=== PATIENT | female | born 1980 | race Caucasian/White ===

== ENCOUNTER 2019-01-07 12:00 | Emergency (ER) | payer OTHER ==
[2019-01-07 12:16] VITALS: BP 104/79
[2019-01-07] MEDS ORDERED: Ketorolac INJ* 30 MG/ML 1 ML VIAL IM ONE (12:25)
--- NOTE | 2019-01-07 12:30 | UC ---
Back Pain HPI - HPI Summary HPI Summary: 38-year-old female complaining of low back pain over the past few days. She does have a history of kidney stones and she states it feels like she may have a kidney stone again. She denies any fever or chills. She's had a hysterectomy in the past. No recent injury. - History of Current Complaint Chief Complaint: UCGU Stated Complaint: BACK PAIN, AND FREQUENT URINATION Time Seen by Provider: 01/07/19 12:11 Hx Obtained From: Patient ?: No Onset/Duration: Gradual Onset, Lasting Days Timing: Constant Severity Initially: Mild Severity Currently: Moderate Pain Intensity: 6 Back Pain: Is Diffuse Character: Dull, Aching Aggravating Factor(s): Nothing Alleviating Factor(s): Nothing Associated Signs And Symptoms: Negative: Weakness, Numbness, Tingling, Abdominal Pain, Flank Pain, Bladder Incontinence, Bowel Incontinence, Pain with Weight Bearing - Allergies/Home Medications Allergies/Adverse Reactions: Allergies Allergy/AdvReac Type Severity Reaction Status Date / Time codeine Allergy Itching Verified 01/07/19 12:16 Home Medications: Home Medications Conjugated Estrogens TAB* [Premarin TAB*] 0.3 mg PO DAILY 01/07/19 [History Confirmed 01/07/19] PMH/Surg Hx/FS Hx/Imm Hx Previously Healthy: Yes GI/ History: Kidney Stones - Surgical History Surgical History: Yes Surgery Procedure, Year, and Place: hysterectomy. breast augmentation - Family History Known Family History: Positive: Non-Contributory - Social History Occupation: Employed Full-time Alcohol Use: None Substance Use Type: None Smoking Status (MU): Light Every Day Tobacco Smoker Review of Systems All Other Systems Reviewed And Are Negative: Yes Musculoskeletal: Positive: Other: - Pain in low back which feels like when she had a previous kidney stone in the past which she had successfully passed. Is Patient Immunocompromised?: No Physical Exam Triage Information Reviewed: Yes Appearance: Well-Appearing, Well-Nourished, Pain Distress - Patient is mildly uncomfortable. Vital Signs: Initial Vital Signs Temp 99.3 F 01/07/19 12:10 Pulse 87 01/07/19 12:10 Resp 16 01/07/19 12:10 BP 104/79 01/07/19 12:10 Pulse Ox 98 01/07/19 12:10 Vital Signs Reviewed: Yes Eyes: Positive: Conjunctiva Clear ENT: Positive: Hearing grossly normal, Pharynx normal, TMs normal, Uvula midline Neck: Positive: Supple, Nontender, No Lymphadenopathy Respiratory: Positive: Lungs clear, Normal breath sounds, No respiratory distress, No accessory muscle use Cardiovascular: Positive: RRR, No Murmur, Pulses Normal, Brisk Capillary Refill Abdomen Description: Positive: Nontender, No Organomegaly, Soft. Negative: CVA Tenderness (R), CVA Tenderness (L), Distended, Guarding, Hepatomegaly, McBurney' s Point Tenderness, Splenomegaly Bowel Sounds: Positive: Present Musculoskeletal: Positive: Strength Intact, ROM Intact Neurological: Positive: Alert, Muscle Tone Normal Psychological Exam: Normal Skin Exam: Normal Back Pain Course/Dx - Course Course Of Treatment: CT abdomen/pelvis without contrast: Patient refused She also refused an ultrasound. 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 She stated the reason for refusing the test is the diggs of them. I discussed this with Dr. Fajardo who spoke with the patient, please see Dr. Fajardo's note. I did check [facility] and there was no information there for [place]. Her urine will be sent for a culture. It did have blood and 1+ leukocytes however she does not have any dysuria, so will not treat for urinary tract infection at this point time. The patient is given Zofran, Percocet 10 tablets, Flomax and definite follow-up with her urologist on Thursday if continued pain and go to the emergency room for any worsening symptoms. The patient is agreeable to this plan of action. - Differential Dx/Diagnosis Provider Diagnosis: Back pain, History of kidney stones Discharge ED - Sign-Out/Discharge Documenting (check all that apply): Patient Departure All imaging exams completed and their final reports reviewed: No Studies - Discharge Plan Condition: Fair Disposition: HOME Prescriptions: Ondansetron TAB* [Zofran 4 MG Tab*] 4 mg PO Q6H PRN #10 tab PRN Reason: Nausea Oxycodone HCl/Acetaminophen [Percocet] 1 tab PO Q6H PRN #10 tab MDD 6 PRN Reason: Pain - Severe Tamsulosin CAP* [Flomax CAP*] 0.4 mg PO DAILY 7 Days #7 cap Patient Education Materials: Kidney Stones (ED) Referrals: [facility] [Outside] No Primary Care Phys,NOPCP [Primary Care Provider] - Additional Instructions: Increase fluids. No alcohol, driving or operating machinery while you're taking the Percocet. Follow-up with your urologist when you get home on Thursday. If you develop any worsening symptoms, fever, chills, vomiting then you are to go to the emergency room for further treatment. - Billing Disposition and Condition Condition: FAIR Disposition: Home
--- NOTE | 2019-01-07 13:28 | UC ---
- Progress Note Progress Note: I WAS ASKED TO EVALUATE THE PATIENT BY VEE HERRING NP. PATIENT WITH LEFT FLANK PAIN AND MILD NAUSEA/DISCOMFORT CONSISTENT WITH SYMPTOMS SHE'S HAD WITH PREVIOUS KIDNEY STONES. PATIENT STATES HER MOST RECENT EPISODE WITH KIDNEY STONES WAS ABOUT A YEAR AND A HALF AGO. SHE HAS HAD A CT SCAN IN THE PAST WHICH SHOWED MULTIPLE STONES. SHE IS HERE FROM [place] FOR A FEW DAYS FOR A HORSE RIDING EVENT. DISCUSSED WITH HER THAT THE FIRST LINE METHOD OF DIAGNOSING KIDNEY STONES IS A CT SCAN. PATIENT DECLINES WITH CONCERNS ABOUT FLOWERS, TIMING AND FOLLOW-UP GIVEN THAT SHE WILL BE RETURNING TO [place] IN A FEW DAYS. SHE IS NOT RUNNING FEVER. TOLERATING PO WELL. DISCUSSED WITH HER THAT WITHOUT IMAGING WE ARE UNABLE TO EVALUATE FOR SIZE/NUMBER OF STONES, HYDROURETER, HYDRONEPHROSIS OR OBSTRUCTION. ADVISED THAT DEPENDING ON THE SIZE OF HER STONE IT MAY OR MAY NOT PASS AND THAT IF HYDROURETER, HYDRONEPHROSIS OR OBSTRUCTION WERE PRESENT SHE IS AT INCREASED RISK FOR RUPTURE WHICH COULD LEAD TO SERIOUS COMPLICATIONS INCLUDING INFECTION AND . PATIENT VERBALIZES UNDERSTANDING AND CONTINUES TO DECLINE IMAGING. STATES SHE WILL GO TO THE CLOSEST ER WITHOUT FAIL IF SHE DEVELOPS ANY CONCERNING SYMPTOMS INCLUDING BUT NOT LIMITED TO FEVER, INABILITY TO URINATE, GROSS BLOOD IN THE URINE, PERSISTENT NAUSEA/VOMITING. Course/Dx - Diagnoses Provider Diagnoses: Back pain, History of kidney stones Discharge ED - Sign-Out/Discharge Documenting (check all that apply): Post-Discharge Follow Up All imaging exams completed and their final reports reviewed: No Studies - Discharge Plan Prescriptions: Ondansetron TAB* [Zofran 4 MG Tab*] 4 mg PO Q6H PRN #10 tab PRN Reason: Nausea Oxycodone HCl/Acetaminophen [Percocet] 1 tab PO Q6H PRN #10 tab MDD 6 PRN Reason: Pain - Severe Tamsulosin CAP* [Flomax CAP*] 0.4 mg PO DAILY 7 Days #7 cap Patient Education Materials: Kidney Stones (ED) Referrals: [facility] [Outside] No Primary Care Phys,NOPCP [Primary Care Provider] - Additional Instructions: Increase fluids. No alcohol, driving or operating machinery while you're taking the Percocet. Follow-up with your urologist when you get home on Thursday. If you develop any worsening symptoms, fever, chills, vomiting then you are to go to the emergency room for further treatment.
== END 2019-01-07 13:10 | disposition home or self-care (01) ==
LOC: UCEAST 12:00
DX: M54.5 Low back pain (principal); F17.210 Nicotine dependence, cigarettes, uncomplicated; Z87.442 Personal history of urinary calculi; Z88.5 Allergy status to narcotic agent
CPT/HCPCS: 81003; 87086; 99202; G0463; J1885